=== PATIENT | female | born 1925 | race Caucasian/White ===

== ENCOUNTER → 2016-04-04 | Outpatient (CLI) | payer OTHER, MEDICAID ==
--- NOTE | 2016-04-04 23:09 | DX ---
DEXA Bone Mineral Densitometry Clinical Indications: Osteoporosis Comparison: March 26, 2012 Technique: Bone Mineral Densitometry (BMD) by Dual Energy X-Ray Absorptiometry (DEXA) was performed utilizing the [employer] scanner. The lumbar spine was evaluated in the AP projection. The bilat eral hips and forearm were evaluated in the AP projection. Vertebral fracture assessment was also pe rformed. AP Lumbar Spine: The L1, L2, L3 and L4 vertebral bodies were evaluated. BMD: 1.266 gm/cm2 T-score: 0.6 SD Z-score: 2.8 SD 15.3% increase from prior examination AP Left Hip: Total BMD: 0.779 gm/cm2 T-score: -1.8 SD Z-score: 0.9 SD 3.7% increase from prior examination AP Right Hip: Total BMD: 0.797 gm/cm2 T-score: 1.7 SD Z-score: 1.0 SD No prior comparison AP Left Forearm, 03/20: BMD: 0.615 gm/cm2 T-score: -3.0 SD Z-score: 0.6 SD No prior comparison Vertebral Fracture Assessment: No significant fracture deformity. No prevertebral aortic calcificati on, significant marginal bone spurring, facet arthrosis, or intrinsic vertebral body sclerosis that would effect the accuracy of the lumbar spine BMD measurement. Conclusion: Considering the lowest measured site, the patient osteoporotic. The ten year FRAX risk for any major osteoporotic fracture , which excludes the risk for a wrist frac ture, is 11.4 % and for a hip fracture is 3.4 %. Any bone loss in this patient is probably related to aging or estrogen deficiency. Consider excluding secondary metabolic causes of bone loss (reported to be present in as many as 30% of patients with normal Z scores). Laboratory evaluation might include CBC, TSH, calcium, phosphorous , albumin, creatinine, alkaline phosphatase, PTH, serum electrophoresis (SPEP or UPEP), and antitissu e transglutaminase antibody levels (celiac disease) and hydroxy vitamin D3, as well as a 24-hour urin e calcium. If secondary causes are excluded, then consider initiating an antiresorptive agent such a s bisphosphonate, nasal spray calcitonin or raloxifene or an anabolic agent such as teriparatide. Ca lcium intake should be at least 1500 per day and vitamin D intake at least 800 international units pe r day. The patient should be encouraged to participate in a regular exercise program that includes w eightbearing and muscle strengthening regimens. Recommend follow-up DEXA in one year to assess the e fficacy of pharmacologic intervention or correction of appropriate secondary cause.
== END ==
LOC: FIMAGING 14:57
PROVIDERS: ATTEND Family Medicine
DX: Z13.820 Encounter for screening for osteoporosis (principal); M81.0 Age-related osteoporosis without current pathological fracture

== ENCOUNTER → 2016-05-17 | Outpatient (CLI) | payer OTHER, MEDICAID | LOC: BMCIMAGING 10:49 | PROVIDERS: ATTEND Internal Medicine Interventional Cardiology | DX: R09.89 Other specified symptoms and signs involving the circulatory and respiratory systems (principal); E11.9 Type 2 diabetes mellitus without complications; I10 Essential (primary) hypertension ==